=== PATIENT | female | born 1950 | race Caucasian/White ===

== ENCOUNTER → 2020-06-02 08:03 | Outpatient (CLI) | payer MEDICARE, SELFPAY ==
--- NOTE | ~2020-06-02 | US_ITS ---
EXAMINATION: US right upper quadrant EXAM DATE: 06/02/2020 08:29 INDICATION: Elevated alkaline phosphatase and GGT levels. TECHNIQUE: Multiple grayscale and Doppler images of the abdomen right upper quadrant were obtained (b y a technologist who performed the scan) and subsequently reviewed. There is no prior study for brennan felder. FINDINGS: The pancreatic head and body are normal in appearance. The pancreatic tail is not visualized. The l iver has normal echogenicity and contour. Some scattered calcifications, granulomas. There is no ev idence of intrahepatic biliary duct dilation. Portal venous flow was seen in the hepatopedal, normal direction and has normal Doppler waveform. No right-sided hydronephrosis. Common bile duct measures 6 mm, which is normal for age. The gallbladder wall is normal in thickness, with expected amount of distention. No sonographic evidence of pericholecystic fluid. There is no cholelithiases. Technologist performing exam reports patient did not demonstrate sonographic Abebe's sign. Please note that this sign is less reliable in patients who have received pain medication. IMPRESSION: 1. Unremarkable abdominal ultrasound exam. Reviewed, dictated and finalized at location A.
== END ==
PROVIDERS: PCP Internal Medicine; Visit Provider Clinical Nurse Specialist
DX: R79.89 Other specified abnormal findings of blood chemistry (principal)
CPT/HCPCS: 76705

== ENCOUNTER 2020-08-10 14:19 | Outpatient (CLI) | payer MEDICARE, SELFPAY ==
--- NOTE | ~2020-08-10 | XR_ITS ---
XR chest 2V DATE: 08/10/2020 14:58 INDICATION: Dyspnea, fluctuating oxygen levels, fluctuating blood pressure TECHNIQUE: PA and lateral views COMPARISON: 01/14/2016 2 view chest FINDINGS: Mild cardiomegaly. Aortic calcification, ectasia and unfolding. No hilar or mediastinal enl argement. No pulmonary infiltrate or consolidation, pleural effusion or pulmonary vascular congestion or pneumo thorax. Diffuse osteopenia. Degenerative spurring of the thoracic spine. IMPRESSION: No active pulmonary disease Reviewed, dictated and finalized at location A. NT PROSECUTION PARALEGAL IMPRESSION: No active pulmonary disease
[2020-08-10 14:51] LABS: Basophils Absolute Auto 0.1 K/mm3 (0.0-0.1); Basophils Percent Auto 0.5 % (0.2-1.2); Eosinophils Absolute Auto 0.3 K/mm3 (0-0.3); Eosinophils Percent Auto 3.2 % (0-4.4); Hematocrit 44.9 % (37.0-47.0); Hemoglobin 14.3 g/dL (12.0-15.0); Immature Granulocyte Absolute 0.03 K/mm3 (0.00-0.031); Immature Granulocyte Percent A 0.3 % (0-0.5); Lymphocytes Absolute Auto 1.95 K/mm3 (0.9-3.2); Lymphocytes Percent Auto 21.1 % (18.3-44.2); Mean Corpuscular HGB Conc 31.8 g/dl (32-36); Mean Corpuscular Hemoglobin 26.5 pg (26-34); Mean Corpuscular Volume 83.1 fl (80-100); Mean Platelet Volume 9.1 fl (7.4-10.4); Monocytes Absolute Auto 0.6 K/mm3 (0.1-0.6); Monocytes Percent Auto 6.9 % (2.6-8.5); Neutrophils Absolute Auto 6.3 K/mm3 (1.3-6.7); Platelet Count Result 302 k/mm3 (150-375); Red Cell Distribution Width 14.2 % (11.5-14.5); White Blood Count 9.3 K/mm3 (4.5-10.0)
[2020-08-10 15:02] LABS: Alanine Aminotransferase 22 U/L (4-35); Albumin Level 3.9 g/dL (3.5-5.1); Alkaline Phosphatase 174 U/L (38-126); Anion Gap 5 mmol/L (8-16); Aspartate Amino Transferase 30 U/L (14-36); Bilirubin,Total 0.4 mg/dL (0.2-1.3); Blood Urea Nitrogen 18 mg/dL (7-17); Calcium 8.9 mg/dL (8.4-10.2); Carbon Dioxide 33 mmol/L (22-30); Chloride 101 mmol/L (98-107); Estimated Glomerular Filt Rate > 60; Glucose 100 mg/dL (65-105); Potassium 3.9 mmol/L (3.4-5.0); Sodium 139 mmol/L (137-145)
[2020-08-14 04:13] LABS: Alkaline Phosphatase 162 U/L (37-153); Macrohepatic Isoenzymes 0 % (<=0)
== END 2020-08-10 14:20 | disposition home or self-care (01) ==
PROVIDERS: PCP Internal Medicine; Visit Provider Internal Medicine
DX: R74.8 Abnormal levels of other serum enzymes (principal); R06.00 Dyspnea, unspecified; R09.02 Hypoxemia
CPT/HCPCS: 36415; 71046; 80053; 84075; 84080; 84443; 85025; 85380

== ENCOUNTER 2020-08-13 08:41 | Outpatient (CLI) | payer MEDICARE, SELFPAY ==
--- NOTE | ~2020-08-13 | US_ITS ---
EXAMINATION: US art doppler w press UE BI DATE: 08/13/2020 09:28 INDICATION: Arterial stricture. Elevated arterial pressures in the left arm. TECHNIQUE: Segmental pressures and plethysmographic and Doppler waveforms of the upper extremity jefe shaun were obtained. COMPARISON: None. FINDINGS: Right and left brachial artery pressures of 166 mm Hg and 173 mm Hg, respectively, are concordant (no rmal difference <= 30 mmHg). The right finger:brachial systolic pressure ratio is 0.80 (normal > 0.8) . Segmental pressure gradients are normal. Arterial waveforms are biphasic with brisk systolic upstro kes throughout (normal upstroke < 0.2 s). The left finger:brachial systolic pressure ratio is 0.94. Segmental pressure gradients are normal. Ar terial waveforms are biphasic with brisk systolic upstrokes throughout. IMPRESSION: 1. Normal left and borderline right finger brachial indices. Reviewed, dictated and finalized at location A. OR FRAMER
== END 2020-08-13 08:42 | disposition home or self-care (01) ==
LOC: ANHIMG 08:43
PROVIDERS: PCP Internal Medicine; Visit Provider Internal Medicine
DX: I77.1 Stricture of artery (principal)
CPT/HCPCS: 93923

== ENCOUNTER 2020-08-21 07:28 | Outpatient (CLI) | payer MEDICARE, SELFPAY ==
--- NOTE | 2020-08-21 07:59 | ECHO_ITS ---
Patient Info Name: Georgiana Hayes Age: 70 years : 1950 Gender: Female Ht: 62 in Wt: 179 lbs BSA: 1.92 m2 HR: 70 bpm BP: 201 / 114 mmHg Heart Rhythm: Sinus Rhythm Technical Quality: Good Exam Date: 08/21/2020 8:56 AM Exam Location: [facility] Patient Status: Outpatient Admit Date: 08/21/2020 Staff Ordering Physician: Raghu Kumar DO It Business Analyst: Toñito Abebe RDCS, RT Attending Provider: Raghu Kumar DO Referring Physician: Stacy BELLA; Exam Type: CA echo doppler color flow Study Info Indications R06.02 - Shortness of breath Complete two-dimensional, color flow and Doppler transthoracic echocardiogram is performed. Strain analysis performed. Summary 1. Complete two-dimensional, color flow and Doppler transthoracic echocardiogram is performed. 2. Strain analysis performed. 3. Left ventricular chamber dimension is mildly enlarged. 4. Left ventricular systolic function is normal, estimated at 55-60%. 5. There is moderately increased left ventricular wall thickness. 6. Left ventricular septal wall motion is normal. 7. The left ventricular diastolic function is grade I diastolic dysfunction. 8. Global longitudinal strain is abnormal at -15 %. 9. Left atrial chamber dimension is mildly enlarged. 10. There is mild mitral valve regurgitation. 11. The pericardium appears increased echogenicity of the pericardium. Left Ventricle Left ventricular chamber dimension is mildly enlarged. Left ventricular systolic function is normal, estimated at 55-60%. There is moderately increased left ventricular wall thickness. Left ventricular septal wall motion is normal. The left ventricular diastolic function is grade I diastolic dysfunction. Global longitudinal strain is abnormal at -15 %. Right Ventricle Right ventricular chamber dimension is normal. Right ventricular systolic function is normal. Left Atria Left atrial chamber dimension is mildly enlarged. Right Atria Right atrial chamber dimension is normal. Atrial Septum Intact interatrial septum visualized by color flow imaging. Aortic Valve The aortic valve is trileaflet. There is mild aortic valve sclerosis. There is no aortic valve stenosis. There is trace aortic valve regurgitation. Pulmonic Valve The pulmonic valve is normal. There is no pulmonic valve stenosis. There is trace pulmonic regurgitation. Mitral Valve The mitral valve has normal leaflets. There is no mitral valve stenosis. There is mild mitral valve regurgitation. Tricuspid Valve The tricuspid valve leaflets are normal. There is no significant tricuspid valve stenosis. There is trace tricuspid valve regurgitation. Pericardium/Pleural The pericardium appears increased echogenicity of the pericardium. There is trivial pericardial effusion. Inferior Vena Cava Normal inferior vena cava with >50% collapse upon inspiration consistent with normal right atrial pressure, 5 mmHg. Aorta The aortic root size at the sinus of Valsalva is normal. The prox ascending aorta size is normal. Left Ventricular Outflow Tract Name Value Normal LVOT 2D LVOT Diameter 2.1 cm LVOT Doppler
== END 2020-08-21 07:29 | disposition home or self-care (01) ==
PROVIDERS: PCP Internal Medicine; Visit Provider Internal Medicine
DX: R06.00 Dyspnea, unspecified (principal)
CPT/HCPCS: 93306

== ENCOUNTER 2020-09-07 09:58 | Outpatient (CLI) | payer MEDICARE, SELFPAY ==
--- NOTE | 2020-09-10 06:51 | WPDPFTINT ---
PFT Interpretation This is a pulmonary function test with spirometry, plethysmography and diffusion capacity. The test was performed and results interpreted in accordance with the 2019 and 2005 ATS /ERS task Force guidelines respectively using the John/Dimitry reference equations. Of note the patient could not perform plethysmography despite repeated attempts and good coaching. Findings Spirometry: The contour of the inspiratory and expiratory flow tracing are normal. The FVC was 2.03 L, 75% predicted. The FEV1 and FEV1 was 1.62 L, 85% predicted. The FEV1:FVC ratio was 80%. Plethysmography Plethysmography: The patient was unable to perform this test. Diffusing capacity: The absolute diffusion capacity was 17.5, 84% predicted. Impression: The spirometry is normal without evidence of an obstructive abnormality. The absolute diffusing capacity is normal. There are no prior studies for comparison.
== END 2020-09-07 09:59 | disposition home or self-care (01) ==
LOC: ANHPFT 09:59
PROVIDERS: PCP Internal Medicine; Visit Provider Nurse Practitioner
DX: R06.00 Dyspnea, unspecified (principal)
CPT/HCPCS: 94060; 94726; 94729

== ENCOUNTER 2020-10-02 08:31 | Outpatient (CLI) | payer MEDICARE, SELFPAY ==
--- NOTE | ~2020-10-02 | CT_ITS ---
EXAMINATION: CTA chest PE protocol DATE: 10/02/2020 09:01 INDICATION: Shortness of breath. TECHNIQUE: Computed tomography (CT) pulmonary angiogram of the chest was performed with 100 mL Omnipa que-350 intravenous contrast. Additional 3D reconstructions utilizing coronal maximum intensity proje ction (MIP) were performed. Automated exposure control and iterative reconstruction technique were em ployed. The dose-length product was 590.91 mGy-cm. COMPARISON: 08/05/2016 FINDINGS: Good contrast opacification of the pulmonary arteries. There is mild streak artifact from dense contr ast in the superior vena cava and right atrium. Mild scattered respiratory motion artifact. No pulmon magali embolism. Chronic elevation of the right hemidiaphragm. Mosaic attenuation in the dependent aspec t of the bilateral lungs most likely mild atelectasis related to partial expiratory phase of imaging with subsegmental air trapping related to small airway disease. No pneumonia, pulmonary edema, pleura l effusion or pneumothorax. Cardiomegaly. Very small pericardial effusion. Small region of chronic pe ricardial calcification along the inferior heart. Thoracic aorta is normal in caliber with no dissect ion. Calcified mediastinal lymph nodes and multiple hepatic and splenic calcific lesions, all consist ent with old granulomatous disease. No pathologically enlarged thoracic lymphadenopathy. Thoracic kyp hosis with moderate spondylosis. Anterior fusion at T6-T7. T2 and T11 hemangiomas. IMPRESSION: 1. No pulmonary embolism. 2. Chronic mosaic attenuation in the dependent aspect of the bilateral lungs most likely related to a telectasis with poor inspiratory effort and small regions of subsegmental air trapping related to sma ll airway disease. 3. Cardiomegaly with very small pericardial effusion. Reviewed, dictated and finalized at location B. AL LABORATORY HELPER IMPRESSION: 1. No pulmonary embolism. 2. Chronic mosaic attenuation in the dependent aspect of the bilateral lungs mo st likely related to atelectasis with poor inspiratory effort and small regions of subsegmental air trapping related to small airway disease. 3. Cardiomegaly with very small pericardial effusion.
[2020-10-02 08:59] LABS: Estimated Glomerular Filt Rate > 60
== END 2020-10-02 08:32 | disposition home or self-care (01) ==
LOC: ANHIMG 08:33
PROVIDERS: PCP Internal Medicine; Visit Provider Internal Medicine Cardiovascular Disease
DX: R06.00 Dyspnea, unspecified (principal); I51.7 Cardiomegaly
CPT/HCPCS: 71275; Q9967

== ENCOUNTER → 2021-07-07 10:56 | Outpatient (CLI) | payer MEDICARE, SELFPAY ==
--- NOTE | ~2021-07-07 | XR_ITS ---
EXAMINATION: XR hip BI wo pelvis INDICATION: Bilateral hip pain TECHNIQUE: Two views of each hip are obtained. COMPARISON: None available FINDINGS: Bone alignment is normal. There is no fracture. The hip joint spaces are maintained. There is mild narrowing at the pubic symphysis. The soft tissues are unremarkable. IMPRESSION: 1. No acute osseous abnormality. Reviewed, dictated and finalized at location B.
== END ==
PROVIDERS: PCP Internal Medicine; Visit Provider Nurse Practitioner
DX: M25.559 Pain in unspecified hip (principal)
CPT/HCPCS: 73521

== ENCOUNTER 2022-09-07 12:37 | Outpatient (CLI) | payer MEDICARE, SELFPAY ==
--- NOTE | ~2022-09-07 | US_ITS ---
EXAMINATION: US carotid duplex BI DATE: 09/07/2022 13:17 INDICATION: Right carotid bruit TECHNIQUE: Grayscale, color Doppler, and pulsed Doppler images of the cervical carotid arteries were obtained. The degree of vessel stenosis is placed in one of the following categories: normal, <50%, 5 0-69%, >=70% but less than near-occlusion, near-occlusion, or total occlusion. Note that percent sten osis relative to normal distal artery lumen diameter is indirectly measured from velocity measurement s as described by Devan, et al. Radiology 2003; 229:340-346. COMPARISON: None. FINDINGS: RIGHT: The right common carotid artery (CCA) peak systolic velocity (PSV) is 84.9 cm/s. The right internal c arotid artery (ICA) PSV is 65.7 cm/s. The right ICA end-diastolic velocity (EDV) is 25.5 cm/s. The [facility] ICA/CCA PSV ratio is 0.8. Grayscale and color Doppler images yield an estimate of 0% diameter red uction from plaque in the ICA. The external carotid artery (ECA) PSV is 69.1 cm/s. There is antegrade flow in the right vertebral artery. LEFT: The left CCA PSV is 101.1 cm/s. The left ICA PSV is 89.3 cm/s. The left ICA EDV is 27.3 cm/s. The [facility] t ICA/CCA PSV ratio is 0.9. Grayscale and color Doppler images yield an estimate of 0% diameter reduc tion from plaque in the ICA. The ECA PSV is 48.1 cm/s. There is antegrade flow in the left vertebral artery. IMPRESSION: 1. No stenosis in the right internal carotid artery. 2. No stenosis in the left internal carotid artery. Reviewed, dictated and finalized at Location A. Reviewed, dictated and finalized at location B. SHING SUPERVISOR
== END 2022-09-07 12:38 | disposition home or self-care (01) ==
PROVIDERS: PCP Internal Medicine; Visit Provider Nurse Practitioner
DX: R09.89 Other specified symptoms and signs involving the circulatory and respiratory systems (principal)
CPT/HCPCS: 93880

== ENCOUNTER → 2023-10-04 08:34 | Outpatient (CLI) | payer MEDICARE, SELFPAY ==
--- NOTE | ~2023-10-04 | XR_ITS ---
XR_CERV2-3V_CR DATE: 10/04/2023 08:54 INDICATION: Cervical radiculopathy TECHNIQUE: AP, open-mouth, odontoid, lateral and swimmer views COMPARISON: None FINDINGS: C1 and C2 are normally aligned and the odontoid process is intact. No fracture or dislocati on or locked facet or prevertebral soft tissue swelling. Moderately severe degenerative disease at C3-4, C5-6 and C6-7. Degenerative change at the apophyseal and uncovertebral joints. Osteopenia. IMPRESSION: Cervical spondylosis. Multilevel moderately severe degenerative disc disease Reviewed, dictated and finalized at Location A. Reviewed, dictated and finalized at location B. MAN IMPRESSION: Cervical spondylosis. Multilevel moderately severe degenerative dis c disease
== END ==
PROVIDERS: PCP Nurse Practitioner; Visit Provider Nurse Practitioner
DX: M47.22 Other spondylosis with radiculopathy, cervical region (principal)
CPT/HCPCS: 72040

== ENCOUNTER 2023-10-11 11:40 | Outpatient (CLI) | payer MEDICARE, SELFPAY ==
--- NOTE | ~2023-10-11 | MM_ITS ---
EXAMINATION: MM screening robbie BI w muna HISTORY: Screening mammogram TECHNIQUE: Craniocaudal and mediolateral oblique 3-D tomosynthesis images were obtained and synthetic 2-D images were generated. CAD analysis was submitted and interpreted. COMPARISON: 09/23/2019 bilateral screening mammogram BREAST PARENCHYMAL COMPOSITION: There are scattered areas of fibroglandular density. FINDINGS: Stable small circumscribed low-density right inferomedial subareolar opacity and 2 right ax illary tail lymph nodes since 09/27/2019. Minimal bilateral benign calcification. There is no evidence of suspicious mass, calcification, or architectural distortion to suggest malignancy in either breas t. There has been no suspicious interval change. IMPRESSION: 1. No mammographic evidence of malignancy. 2. Recommend routine screening mammography in one year. BI-RADS Category 2: Benign finding(s). Reviewed, dictated and finalized at location A. ATE BRANCH EXCHANGE SERVICE ADVISOR
--- NOTE | ~2023-10-11 | DEXA_ITS ---
Bone Density Report Name: EMANUEL DOUGLAS Age: 73 Sex: Female Ethnicity: White Date of : 1950 Indication: postmenopausal; screening for osteoporosis; height loss; Referring Provider: Madhuri Chapa Study: Bone densitometry was performed. Exam Date: October 11, 2023 Accession number: [id number] Bone Density: Region BMD T-score Z-score Classification AP Spine(L1-L4) 0.988 -0.5 1.8 Normal Femoral Neck (Left) 0.622 -2.0 0.0 Osteopenia Total Hip (Left) 0.776 -1.4 0.4 Osteopenia Femoral Neck (Right) 0.611 -2.1 -0.1 Osteopenia Total Hip (Right) 0.791 -1.2 0.5 Osteopenia Femoral Neck Mean 0.617 -2.1 0.0 Osteopenia Total Hip Mean 0.783 -1.3 0.4 Osteopenia World Health Organization criteria for BMD impression classify patients as: Normal (T-score at or above -1.0), Osteopenia (T-score between -1.0 and -2.5), or Osteoporosis (T-score at or below -2.5). 10-year Fracture Risk(1): Major Osteoporotic Fracture 13% Hip Fracture 3.3% Reported Risk Factors: [place] (), Neck BMD=0.611, BMI=33.2 (1) FRAX(R) Version 3.08. Fracture probability calculated for an untreated patient. Fracture probability may be lower if the patient has received treatment. Clinical Information Provided by Patient: Has used the following medications: Vitamin D, Multivitamin Patient maximum height was 63.0 Menopause Age: 49 Drinks caffeinated beverages Onset of menses at age 11 Number of children 2 Impression: The patient has low bone mass, based on the Right Femoral Neck T-score. Discussion: BONE DENSITY IS LOW AT ONE OR MORE SKELETAL SITES. This patient's lowest T-score is low at one or more skeletal sites. It meets the World Health Organization's (WHO) criteria for ?low bone mass? (T-score between -1.0 and -2.5). The patient's 10-year risk of fracture as calculated by FRAX is less than the threshold where pharmacological therapy is recommended by the National Osteoporosis Foundation (NOF). However, all treatment decisions require clinical judgment and consideration of individual patient factors, including patient preferences, comorbidities, previous drug use, risk factors not captured in the FRAX model (e.g., frailty, falls, vitamin D deficiency, increased bone turnover, interval significant decline in bone density) and possible under or overestimation of fracture risk by FRAX. The patient should follow a healthful lifestyle (good nutrition with adequate calcium and vitamin D, and appropriate weight-bearing exercise). Follow-Up: Consider repeating this study in 2 to 3 years to reassess this patient's status, or sooner if there is some new clinical indication. Reported by: Dr. Elijah Ruggiero on 10/11/2023 12:39:00 PM. Reviewed
== END 2023-10-11 11:41 | disposition home or self-care (01) ==
LOC: CHSIMG 11:42
PROVIDERS: PCP Internal Medicine; Visit Provider Nurse Practitioner
DX: Z78.0 Asymptomatic menopausal state (principal); Z12.31 Encounter for screening mammogram for malignant neoplasm of breast; M85.89 Other specified disorders of bone density and structure, multiple sites
CPT/HCPCS: 77063; 77067; 77080

== ENCOUNTER 2024-05-29 12:30 | Outpatient (RCR) | payer MEDICARE, SELFPAY ==
--- NOTE | 2024-05-20 12:08 | OPREHPOC ---
Outpatient Therapy Plan of Care This is a Multidisciplinary Plan of Care that may contain components documented by all disciplines (PT, OT, and ST.) PT Problem 1 PT Problem #1 Knowledge Deficit PT Goal 1 Goal / Goal Update [place] with HEP Target Visit 4 PT Problem 2 PT Problem #2 Impaired Strength PT Goal 1 Goal / Goal Update Improve ventura hip abduction strength to 4/5 to improve lateral stability with ADLs Target Visit 8 PT Goal 2 Goal / Goal Update Improve lower abdominal strength to 4/5 to improve core stabilization with ADLs Target Visit 8 PT Problem 3 PT Problem #3 Impaired Range of Motion PT Goal 1 Goal / Goal Update Demonstrate 40 degrees of ventura hip abduction ROM for improved hip disassociation with functional activity. Target Visit 8 PT Problem 4 PT Problem #4 Impaired Flexibility PT Goal 1 Goal / Goal Update Demonstrate no reported sciatic nerve tension with 90/90 stretch PT Problem 5 PT Problem #5 Pain PT Goal 1 Goal / Goal Update Report in 75% improvement in gross function in AM with decreased stiffness and pain Target Visit 8
--- NOTE | 2024-05-20 12:09 | PTOPEVAL1 ---
Assessment and note entered by Clyde Tripathi, PT Evaluation Information Assessment Status Evaluation ICD-10 Condition Codes (PT) Pain in low back M54.50,M54.16 Onset April 2024 Subjective Information Reports that she typically goes to the a couple days a week. She has been sick the past 2 weeks and spent a lot of downtime on the couch. Pain is worse in the morning and sometimes at night. She has not had any recent imaging but did a few years ago. Reports that she has not been doing any consistent exercises. Reported Pain Level Pain Score 0: Self Report Assessment PT Clinical Summary Patient presents with signs and symptoms consistent with lumbar stenosis and sciatica. Patient pain is fairly well controlled at this time, but has notable mobility deficits of hips and weakness of core leading to increased pain with increased activity. Plan of Care Interventions Electrical Stimulation,Gait Training,Hot Pack/Cold Pack,Manual Therapy,Neuro Re-education, Therapeutic Activities,Therapeutic Exercise PT Services Indicated Yes Treatment Frequency and 2x/week for 8 visits Duration These treatments will address the objective and functional deficits as defined above. The patient will be advanced safely and appropriately in order for the patient to progress towards his/her prior level of function. Additional exercises will be introduced and as well as a comprehensive home exercise program upon discharge, if needed, ?to ensure carryover of functional gains achieved in the clinic. This treatment plan has been reviewed and agreement upon by the patient.
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
--- NOTE | 2024-06-13 10:44 | PCPTNOTE ---
reevaluation for 06-12-24 was canceled due to PT illness.
--- NOTE | 2024-06-13 15:01 | PTOPDC ---
Assessment and note entered by Joan Holliday, PT Discharge Report Assessment Status Discharge - Pt Not Present ICD-10 Condition Codes (PT) Pain in low back M54.50,M54.16 Onset April 2024 Subjective Information pt was not seen this date; Assessment PT Clinical Summary Georgiana has received 4 PT sessions, from May 20 to . She then called and canceled all of her appointments, due to going out of town for family emergency. Discharge PT. The goals were not addressed. Plan of Care PT Services Indicated No
== END 2024-06-14 09:34 | disposition home or self-care (01) ==
LOC: ANHPT 12:30
PROVIDERS: PCP Internal Medicine; Visit Provider Nurse Practitioner
DX: M54.16 Radiculopathy, lumbar region (principal); M54.50 Low back pain, unspecified
CPT/HCPCS: 97110; 97140; 97161; 97530

== ENCOUNTER 2025-06-24 10:38 | Outpatient (CLI) | payer MEDICARE, SELFPAY ==
--- NOTE | 2025-06-24 | ECG_ITS ---
Test Date: 2025-06-24 11:09:50 Measurements Intervals [place] Rate: 71 P: 48 W[place]: 147 QRS: -16 QRSD: 93 T: 48 QT: 389 QTc: 423 Interpretive Statements SINUS RHYTHM BASELINE ARTIFACT- I, II, III, AVR, AVL, AVF, V3 NORMAL ECG No previous ECG available for comparison Electronically Signed On 06-24-2025 11:27:41 CDT by Amari Chapin D.O.
[2025-06-24 11:14] LABS: Hematocrit 39.2 % (37.0-47.0); Hemoglobin 11.3 g/dL (12.0-15.0); Immature Granulocyte Percent A 0.2 % (0-0.5); Lymphocytes Absolute Auto 1.83 K/mm3 (0.9-3.2); Mean Corpuscular HGB Conc 28.8 g/dl (32-36); Mean Corpuscular Hemoglobin 21.2 pg (26-34); Mean Corpuscular Volume 73.7 fl (80-100); Nucleated Red Blood Cells Absolute Auto 0.000 K/mm3 (0.0-0.012); Nucleated Red Blood Cells Perc 0.0 % (0.0-0.2); Platelet Count Result 317 k/mm3 (150-375); Red Blood Count 5.32 M/mm3 (4.2-5.4); White Blood Count 8.1 K/mm3 (4.5-10.0)
[2025-06-24 11:28] LABS: Appearance Urine Clear (Clear)
[2025-06-24 11:30] LABS: Glucose Urine UA Negative (Negative); Nitrate Urine Negative (Negative); Specific Grav Ur 1.020 (1.001-1.035)
[2025-06-24 11:31] LABS: Add Urine Microscopic? NO; Leukocyte Esterase Ur Negative LEU/UL (Negative)
[2025-06-24 11:35] LABS: Alanine Aminotransferase 14 U/L (6-35); Albumin Level 3.9 g/dL (3.5-5.1); Alkaline Phosphatase 134 U/L (38-126); Anion Gap 5 mmol/L (4-12); Aspartate Amino Transferase 24 U/L (14-36); Bilirubin,Total 0.4 mg/dL (0.2-1.3); Blood Urea Nitrogen 20 mg/dL (7-17); CRP 1.1 mg/dL (<1.0); Calcium 9.1 mg/dL (8.4-10.2); Carbon Dioxide 28 mmol/L (22-30); Chloride 102 mmol/L (98-107); Estimated Glomerular Filt Rate > 60; Glucose 92 mg/dL (65-110); Potassium 4.2 mmol/L (3.4-5.0); Sodium 135 mmol/L (137-145); Total Protein 6.8 g/dL (6.3-8.2)
[2025-06-24 11:56] LABS: Hypochromasia 2+; Ovalocytes 1+
[2025-06-24 11:57] LABS: Helmet Cells Occasional; Schistocytes Occasional
--- OUTSIDE RECORDS SUMMARY | 2025-06-24 13:08 | XMS_ITS | Clinical Summary ---
Author Organization [facility] al Address [address] [place] [address] Care Team Providers Care Android Framework Developer Name Role Phone Raghu Kumar DO Primary Care Provider Allergies No known active allergies Medications omeprazole (PriLOSEC) 20 mg capsule take 1 capsule by oral route every day 30 minutes to 1 hour before a meal 0 05/12/2011 Active lisinopriL (PRINIVIL,ZESTR IL) 20 mg tablet Take 20 mg by mouth daily Active hydroCHLOROthia zide (HYDRODIURIL) 25 mg tablet Take 25 mg by mouth daily Active magnesium oxide (MAG-OX) 250 mg (150.8 mg elemental) tabletIndicatio ns:hypomagnesem ia 250 mg daily Active cholecalciferol (VITAMIN D-3) 25 mcg (1,000 unit) tablet Take 1,000 Units by mouth daily Active doxycycline (VIBRAMYCIN) 100 mg capsule Take 100 mg by mouth every other day Active spironolactone (ALDACTONE) 25 mg tablet Take 1 tablet (25 mg total) by mouth daily 30 tablet 11 09/16/2020 Active Active Problems Problem Noted Date Diagnosed Date Lumbago 11/24/2016 Hypertensive heart disease without congestive he art failure 01/26/2016 Overview (12/08/2016): Hypertensive heart disease without heart failure Chest pain on exertion 01/26/2016 Overview (12/08/2016): Exertional chest pain Obstructive sleep apnea syndrome 01/26/2016 Overview (12/08/2016): SONIA (obstructive sleep apnea) Dyspnea on exertion 01/26/2016 Overview (12/09/2016): RODRIGUEZ (dyspnea on exertion) Gastroesophageal reflux disease with esophagitis 01/26/2016 Overview (12/09/2016): GERD with esophagitis Obesity with body mass index 30 or greater 01/25 Overview (12/09/2016): Obesity (BMI 35.0-39.9 without comorbidity) Chronic fatigue syndrome 01/26/2016 Overview (12/09/2016): Chronic fatigue Medical History Medical History Date Comments Hypertension Acid indigestion Anxiety Depression Arthritis Bladder infection Family History Medical History Relation Name Comments Diabetes Brother Diabetes mellit us; Coronary artery disease Father Sony nary artery disease; Heart disease Father Family history of cardiac disorder - (Added by TW Conv) Hypertension Father Family history of hypertension - (Added by TW Conv) Kidney disease Father Family histor y of kidney disease - (Added by TW Conv) Other Father stomach issues; Arthritis Mother Family history of arthritis - (Added by TW Conv) Brain Aneurysm Mother brain aneurys m; Hypertension Mother Family history of hypertension - (Added by TW Conv) Relation Name Status Comments Brother Alive Father (Age 74) Mother (Age 58) Social History Tobacco Use Types Packs/Day Years Used Date Smoking Tobacco: Never Smokeless Tobacco: Never Alcohol Use Standard Drinks/Week Comments No 0 (1 standard drink = 0.6 oz pur e alcohol) Personal Safety Answer Date Recorded Getting School Help Needed Not on file 11/17 Comments Unknown Sex and Gender Information Value Date Recorded Sex Assigned at Not on file Legal Sex Female 9:05 AM WIRE CHARGER Gender Identity Not on file Sexual Orientation Not on file Obstetrics History Last Filed Vital Signs Vital Sign Reading Time Taken Comments Blood Pressure 138/82 09/16/2020 3:11 PM WIRE CHARGER Pulse 100 09/16/2020 3:11 PM WIRE CHARGER Temperature - - Respiratory Rate - - Oxygen Saturation 96% 09/16/2020 3:11 PM WIRE CHARGER Inhaled Oxygen Concentration - - Weight 82.1 kg (181 lb) 09/16/2020 3:11 PM WIRE CHARGER Height 160 cm (5' 3) 09/16/2020 3:11 PM WIRE CHARGER Body Mass Index 32.06 09/16/2020 3:11 PM WIRE CHARGER Plan of Treatment Not on file Insurance MEDICARE AET SENIOR SUPPLEMENT Care Teams Android Framework Developer Relationship Specialty Start Date End Date Raghu Kumar DO PCP - General Internal Medicine 09/15/20
--- OUTSIDE RECORDS SUMMARY | 2025-06-24 13:09 | XMS_ITS | Clinical Summary ---
Author Organization [facility] Address [address] [place] [address] Phone Care Team Providers Care Agricultural Engineering Technologist Name Role Phone Unavailable Primary Care Provider Unavailabl e Allergies No known active allergies Medications lisinopril (PRINIVIL, ZESTRIL) 20 MG Tablet Take 20 mg by mouth daily. Active DOXYCYCLINE HYCLATE PO Take 100 mg by mouth every other day. TAKES FOR ROSACEA Active magnesium 250 MG Tablet Take 250 mg by mouth every other day. Active metroNIDAZOLE (METROGEL) 0.75 % Gel Apply every other day. USES FOR ROSACEA Active Vitamin D3 1000 UNIT Tablet Take 25 mcg by mouth daily. Active ibuprofen (MOTRIN) 200 MG Capsule Take 800 mg by mouth daily as needed for Moderate or more severe pain (ARTHRITIS). Active Encounters Date Type Department Care Team Description 06/19/2025 Travel from Last 3 Months Family History Medical History Relation Name Comments Hypertension Father Cerebral Anuerysm Mother Relation Name Status Comments Father Mother Social History Tobacco Use Types Packs/Day Years Used Date Smoking Tobacco: Never Smokeless Tobacco: Never Tobacco Cessation:Counseling Given: Not Answered Alcohol Use Standard Drinks/Week Comments Not Currently 0 (1 standard drink = 0.6 oz pur e alcohol) Comments Unknown Sex and Gender Information Value Date Recorded Sex Assigned at Not on file Legal Sex Female 1:28 PM CDT Gender Identity Not on file Sexual Orientation Not on file Last Filed Vital Signs Vital Sign Reading Time Taken Comments Blood Pressure - - Pulse - - Temperature - - Respiratory Rate - - Oxygen Saturation - - Inhaled Oxygen Concentration - - Weight 76.7 kg (169 lb) 06/19/2025 1:00 PM CDT Height 152.4 cm (5') 06/19/2025 1:00 PM CDT Body Mass Index 33.01 06/19/2025 1:00 PM CDT Plan of Treatment Upcoming Encounters Date Type Department Care Team (Late st Contact Info) Description 07/04/2025 10:10 AM CDT [facility] [address] [place] [address] Nicol Ervin MD [address] , [facility] [place] [address] 07/04/2025 10:10 AM CDT - 07/04/2025 11:40 AM CDT [facility] [address] [address] [place] [address] Nicol Ervin MD [address] , [facility] [place] [address] MINIMALLY INVASIVE LUMBAR DECOMPRESSION OF BILATERAL LUMBAR FOUR-LUMBAR 5, C-ARM, PLASMA BLADE, OZZIE CONF FOR 07/04 @ 1030 DS 06/11 Scheduled Procedures Name Priority Associated Diagnoses Date/Ti me MINIMALLY INVASIVE LUMBAR DECOMPRESSION LUMBAR STENOSIS WITH NEUROGENIC CLAUDICATION, ENCOUNTER FOR EXAMINATION FOR NORMAL COMPARRISON AND CONTROL IN A CLINICAL RESEARCH PROGRAM 07/04/2025 10:10 AM CDT Insurance MEDICARE C [employer]
--- OUTSIDE RECORDS SUMMARY | 2025-06-24 13:09 | XMS_ITS | Clinical Summary ---
Author Organization [facility] Address [facility] [place] [address] Care Team Providers Care Graduate Assistant Athletic Trainer Name Role Phone Stacy Raghu Monico DO Primary Care Provider Encounters Date Type Department Care Team Description 04/16/2025 1:12 PM CDT - 04/16/2025 11:59 PM CDT Hospital Encounter [facility] [address] [place] [address] Shruthi Segovia, PA Discharge Disposition: Home or Self Care (Routine Discharge) 04/16/2025 Travel from Last 3 Months Social History Tobacco Use Types Packs/Day Years Used Date Smoking Tobacco: Never Assessed Comments Unknown Sex and Gender Information Value Date Recorded Sex Assigned at Female 12/12/2024 1:14 PM CDT Legal Sex Female 4:12 PM CDT Gender Identity Not on file Sexual Orientation Not on file Plan of Treatment Health Maintenance Due Date Last Done Comments Hepatitis C 1968 DTaP, Tdap and Td Vaccines (1 - Tdap) 1968 Pneumococcal Vaccine: 50+ Years (1 of 1 - PCV) 1999 Zoster Vaccines (1 of 2) 1999 Annual Medicare Wellness Visit 2014 Dexa Scan (General) 2014 RSV Immunization or 60+ Years (1 - 1-dose 75+ series) 2024 COVID-19 Vaccine ( - season) 2025 05/30/2024, 05/24/2023, 09/08/2022, Additional history exists Influenza Adult (#1) 2025 05/30/2024, 05/24/2023, 07/13/2022 Hepatitis A Vaccines Aged Out No long er eligible based on patient's age to complete this topic Meningococcal B Vaccine Aged Out No l onger eligible based on patient's age to complete this topic Meningococcal Vaccine Aged Out No attila desean eligible based on patient's age to complete this topic RSV Immunizations Under 20 Months Aged Out No longer eligible based on patient's age to complete this topic Procedures Procedure Name Priority Date/Time Associated Diagnosis Comments MRI CERV SPINE WO CON Routine 04/16/2025 2:09 PM CDT Cervicalgia of oyngdxae-[id number]-la ial region Cervical facet joint syndrome from Last 3 Months Results * MRI CERV SPINE WO CON (04/16/2025 2:09 PM CDT) Anatomical Region Laterality Modality Spine Magnetic Resonan ce 04/22/2025 8:19 AM CDT Impressions 04/22/2025 9:20 AM CDT IMPRESSION: Moderate multilevel cervical spondylosis greatest at C4-5 and C5-6, as described above. Ordered By: SHRUTHI SEGOVIA Interpreted By: Bill Charlton MD, 04/22/2025 8:19 AM Narrative 04/22/2025 9:20 AM CDT [address] [address] Examination: MRI CERV SPINE WO CON, 04/16/2025 1:32 PM. Technique: Multiplanar multisequence magnetic resonance images of the cervical spine were obtained without intravenous contrast. Clinical history: Headaches, left sided neck pain, numbness in left hand Comparison: None available Findings: The cervical vertebral bodies and facets are well aligned. The cervical vertebral body heights are preserved. There is a hemangioma within the T2 vertebral body. There is intervertebral disc height loss at C3-4, C4-5, C5-6 and C6-7 with endplate degenerative changes at these levels. No abnormal prevertebral or paraspinal soft tissue swelling. The cervical spinal cord has a normal signal throughout its course. Tiny left neural foraminal dural diverticulum at T1-2. C2-3: No significant spinal canal stenosis. Uncovertebral joint hypertrophy. Mild right neural foraminal stenosis. No left neural foraminal stenosis. C3-4: Disc bulge with posterior endplate marginal osteophytes impress the ventral thecal sac. Moderate spinal canal stenosis. Uncovertebral joint hypertrophy. Moderate left neural foraminal stenosis. Moderate to severe right neural foraminal stenosis. C4-5: Disc bulge impressing the ventral thecal sac. Moderate to severe spinal canal stenosis. Uncovertebral joint hypertrophy. Moderate to severe bilateral neural foraminal stenosis C5-6: Disc bulge impressing the ventral thecal sac. Moderate to severe spinal canal stenosis. Uncovertebral joint hypertrophy. Moderate to severe bilateral neural foraminal stenosis. C6-7: No significant spinal canal stenosis. Uncovertebral joint hypertrophy. Mild to moderate bilateral neural foraminal stenosis. C7-T1: No significant spinal canal stenosis. Facet joint hypertrophy. Mild to moderate left neural foraminal stenosis. Moderate to severe right neural foraminal stenosis. Procedure Note Bill Charlton MD - 04/22/[address] [address] Examination: MRI CERV SPINE WO [facility], 04/16/2025 1:32 PM. Technique: Multiplanar multisequence magnetic resonance images of thecervical spine were obtained without intravenous contrast. Clinical history: Headaches, left sided neck pain, numbness in left hand Comparison: None available Findings: The cervical vertebral bodies and facets are well aligned. The cervicalvertebral body heights are preserved. There is a hemangioma within the [id number] body. There is intervertebral disc height loss at C3-4, C4-5,C5-6 and C6-7 with endplate degenerative changes at these levels. Noabnormal prevertebral or paraspinal soft tissue swelling. The cervicalspinal cord has a normal signal throughout its course. Tiny left neuralforaminal dural diverticulum at T1-2. C2-3: No significant spinal canal stenosis. Uncovertebral jointhypertrophy. Mild right neural foraminal stenosis. No left neuralforaminal stenosis. C3-4: Disc bulge with posterior endplate marginal osteophytes impress theventral thecal sac. Moderate spinal canal stenosis. Uncovertebral jointhypertrophy. Moderate left neural foraminal stenosis. Moderate to severeright neural foraminal stenosis. C4-5: Disc bulge impressing the ventral thecal sac. Moderate to severespinal canal stenosis. Uncovertebral joint hypertrophy. Moderate to severebilateral neural foraminal stenosis C5-6: Disc bulge impressing the ventral thecal sac. Moderate to severespinal canal stenosis. Uncovertebral joint hypertrophy. Moderate to severebilateral neural foraminal stenosis. C6-7: No significant spinal canal stenosis. Uncovertebral jointhypertrophy. Mild to moderate bilateral neural foraminal stenosis. C7-T1: No significant spinal canal stenosis. Facet joint hypertrophy. Mildto moderate left neural foraminal stenosis. Moderate to severe rightneural foraminal stenosis. IMPRESSION: Moderate multilevel cervical spondylosis greatest at C4-5 and C5-6, asdescribed above. Ordered By: SHRUTHI SEGOVIA Interpreted By: Bill Charlton MD, 04/22/2025 8:19 AM Shruthi Segovia PA MRI Final Resul t from Last 3 Months [id number] Care Teams Graduate Assistant Athletic Trainer Relationship Specialty Start Date End Date Raghu Kumar DO [address] [facility] [address] [place] [address] PCP - General INTERNAL MEDICINE 12/12/24
== END 2025-06-24 10:39 | disposition home or self-care (01) ==
PROVIDERS: PCP Internal Medicine; Visit Provider Physician Assistant
DX: Z01.818 Encounter for other preprocedural examination (principal)
CPT/HCPCS: 36415; 80053; 81003; 85025; 85652; 86140; 93005